=== PATIENT | female | born 1940 | race Caucasian/White ===

== ENCOUNTER 2016-02-09 18:45 | Emergency (ER) | payer MEDICARE ==
[~2016-02-09] VITALS: Ht 157.5 cm; Wt 53.7 kg
[2016-02-09 19:00] VITALS: BP 121/63; PULSE 71; RESP 18; TEMP 97.8; O2SAT 95
--- NOTE | 2016-02-09 19:54 | PD ---
HPI Chief Complaint: Wound/Suture/Staple Re-Check Time Seen by Provider: 19:47 Travel History International Travel<30 days: No Contact w/Intl Traveler<30days: No Traveled to known affect area: No History of Present Illness HPI Patient 68-year-old female post procedure day 9 from a scalp abrasion repair. Per documentation she had 1 staple placed. Patient has no complaints and presents for staple removal. Denies any headache blurred vision focal weakness. PFSH Past Medical History Cancer: Yes (Cervical) Diminished Hearing: No Menopausal: Yes Past Surgical History Gynecologic Surgery: Yes (PARTIAL HYSTO) Hysterectomy: Yes Social History Alcohol Use: Yes (Wine nightly) Tobacco Use: No Substance Use: No Allergies-Medications (Allergen,Severity, Reaction): Coded Allergies: No Known Allergies (Unverified , 02/09/16) Reported Meds & Prescriptions Reported Meds & Active Scripts Active No Active Prescriptions or Reported Medications Review of Systems Except as stated in HPI: all other systems reviewed are Neg Physical Exam Narrative GENERAL: Well-nourished, well-developed patient. SKIN: Warm and dry. HEAD: Normocephalic. There is a small abrasion which is well-healed over the right parietal scalp. One staple is intact. EYES: No scleral icterus. No injection or drainage. NECK: Supple, trachea midline. No JVD or lymphadenopathy. CARDIOVASCULAR: Regular rate and rhythm without murmurs, gallops, or rubs. RESPIRATORY: Breath sounds equal bilaterally. No accessory muscle use. GASTROINTESTINAL: Abdomen soft, non-tender, nondistended. MUSCULOSKELETAL: No cyanosis, or edema. BACK: Nontender without obvious deformity. No CVA tenderness. Data Data Last Documented VS Vital Signs Date Time Temp Pulse Resp B/P Pulse Ox O2 Delivery O2 Flow Rate FiO2 02/09/16 19:00 97.8 71 18 121/63 95 Orders Tetanus/Diphtheria Tox Adult (Tetanus/Di (02/09/16 20:15) MDM Medical Decision Making Medical Screen Exam Complete: Yes Emergency Medical Condition: Yes Differential Diagnosis Count for staple removal, abrasion, closed head injury. Narrative Course One staple was removed by me, minimal bleeding after the procedure, direct pressure was probably a minute and hemostasis was achieved. This was small venous oozing. Discussed the patient wound care going forward. Discussed return to ED criteria. She stable for discharge at this time. Diagnosis Primary Impression: Encounter for staple removal Scripts No Active Prescriptions or Reported Meds Disposition: 01 DISCHARGE HOME Condition: Stable Last Tellez MD Feb 09, 2016 19:54
[2016-02-09] MEDS ORDERED: TETANUS/DIPHTHERIA TOXOID ADULT 0.5 ML VIAL IM ONE (20:15)
== END 2016-02-09 20:27 | disposition home or self-care (01) ==
LOC: PHED 18:45 → PHEFT 20:27
DX: S00.01XD Abrasion of scalp, subsequent encounter (principal); Z23 Encounter for immunization; Z48.02 Encounter for removal of sutures; X58.XXXD Exposure to other specified factors, subsequent encounter
CPT/HCPCS: 90471; 90714

== ENCOUNTER 2016-02-27 08:04 | Emergency (ER) | payer MEDICARE ==
[~2016-02-27] VITALS: Ht 157.5 cm; Wt 53.0 kg
[2016-02-27 08:10] VITALS: BP 122/71; PULSE 91; RESP 16; TEMP 98; O2SAT 96
[2016-02-27] MEDS ORDERED: BACT800T5 PO (08:35)
[2016-02-27] MEDS ORDERED: DOXY100C PO (08:35)
--- NOTE | 2016-02-27 08:35 | PD ---
HPI Chief Complaint: Wound/Suture/Staple Re-Check Time Seen by Provider: 08:24 Travel History International Travel<30 days: No Contact w/Intl Traveler<30days: No Traveled to known affect area: No History of Present Illness HPI Patient presents with concerns of a scalp infection. Reports head trauma on [place] after falling in her tub with a posterior scalp hematoma/ laceration. Patient reports if needed one staple. Denies loss of consciousness at that time. Reports she returned 10 days later for staple removal. Reports that she is practicing general wound care however it has become more painful and draining yellow pus over the last 3-4 days. Denies any nausea vomiting diarrhea or fever. No new rashes. PFSH Past Medical History Cancer: Yes (Cervical) Diminished Hearing: No Immunizations Current: Yes Influenza Vaccination: No ?: Not Menopausal: Yes Past Surgical History Gynecologic Surgery: Yes (PARTIAL HYSTO) Hysterectomy: Yes (partial) Social History Alcohol Use: Yes (Wine nightly) Tobacco Use: No (former) Substance Use: No Allergies-Medications (Allergen,Severity, Reaction): Coded Allergies: No Known Allergies (Unverified , 02/27/16) Reported Meds & Prescriptions Reported Meds & Active Scripts Active Doxycycline Hyclate 100 Mg Cap 100 Mg PO BID Bactrim DS (Sulfamethoxazole-Trimethoprim) 800-160 Mg Tab 1 Tab PO BID Review of Systems General / Constitutional: No: Fever Eyes: No: Visual changes HENT: No: Headaches Cardiovascular: No: Chest Pain or Discomfort Respiratory: No: Shortness of Breath Gastrointestinal: No: Abdominal Pain Genitourinary: No: Dysuria Musculoskeletal: No: Pain Skin: No Rash Neurologic: No: Weakness Psychiatric: No: Depression Endocrine: No: Polydipsia Hematologic/Lymphatic: No: Easy Bruising Physical Exam Narrative GENERAL: Well-nourished, well-developed patient. SKIN: Warm and dry. HEAD: Normocephalic. Examination of posterior scalp reveals eschar versus blood with matting in her hair measuring 8 cm x 4 cm. Initial thought is that this is poor wound care with incomplete cleaning. There is a small area with drainage of yellow pus and increased erythema which is painful to touch measuring 1.5 cm x 1.5 cm. After aggressive wound cleaning there is a open wound/ulceration measuring approximately 3 x 4 cm, tissue appears to be edematous but pink, there is a foul -smelling odor with drainage around the edges and yellow pus EYES: No scleral icterus. No injection or drainage. NECK: Supple, trachea midline. No JVD or lymphadenopathy. CARDIOVASCULAR: Regular rate and rhythm without murmurs, gallops, or rubs. RESPIRATORY: Breath sounds equal bilaterally. No accessory muscle use. GASTROINTESTINAL: Abdomen soft, non-tender, nondistended. MUSCULOSKELETAL: No cyanosis, or edema. BACK: Nontender without obvious deformity. No CVA tenderness. Data Data Last Documented VS Vital Signs Date Time Temp Pulse Resp B/P Pulse Ox O2 Delivery O2 Flow Rate FiO2 02/27/16 08:10 98.0 91 16 122/71 96 Orders Mupirocin 2% Oint (Bactroban 2% Oint) (02/27/16 09:00) Wound Care (02/27/16 08:58) MDM Medical Decision Making Medical Screen Exam Complete: Yes Emergency Medical Condition: Yes Differential Diagnosis Poor wound care, scalp cellulitis, impetigo, abscess formation Narrative Course Assessment and plan discussed with patient at bedside. Wound was cleaned aggressively with peroxide see exam note. IM anabiotic's provided. Wound cleaned and dressed in sterile fashion. Diagnosis Primary Impression: Scalp ulceration Qualified Code: L98.491 - Scalp ulceration, limited to breakdown of skin Patient Instructions: General Instructions Additional Instructions: Reviewed general wound care in depth and reinforced with patient and . Oral antibiotics and topical antibiotics as prescribed. Motrin or Tylenol for pain. Wound check 2-3 days in the emergency room. Encouraged to get a PCP. Med/Other Pt SpecificInfo: Prescription(s) given Scripts Mupirocin Topical (Bactroban Topical)2% Oint1 Applic TOPICAL BID #22 GM Ref 0 Prov:Shane Rose MD 02/27/16 Doxycycline Hyclate 100 Mg Arm914 Mg PO BID #20 CAP Ref 0 Prov:Shane Rose MD 02/27/16 Sulfamethoxazole-Trimethoprim (Bactrim DS)800-160 Mg Tab1 Tab PO BID #20 TAB Ref 0 Prov:Shane Rose MD 02/27/16 Disposition: 01 DISCHARGE HOME Condition: Good Shane Rose MD Feb 27, 2016 08:35
[2016-02-27] MEDS ORDERED: MUPIROCIN 2% OINT 22 GM TUBE TOPICAL ONE (09:00)
[2016-02-27] MEDS ORDERED: CLINDAMYCIN PHOS 600 MG/4 ML VIAL IM ONE (09:00)
[2016-02-27] MEDS ORDERED: BACT2OIN TOPICAL (09:07)
== END 2016-02-27 09:47 | disposition home or self-care (01) ==
LOC: PHED 08:04
DX: L98.491 Non-pressure chronic ulcer of skin of other sites limited to breakdown of skin (principal)
CPT/HCPCS: 96372